=== PATIENT | female | born 1945 | race Hispanic/Latino ===

== ENCOUNTER 2017-07-01 12:08 | Outpatient (CLI) | payer MEDICARE ==
--- NOTE | 2017-07-01 14:20 | Mammography Report ---
BONE DEXA:07/01/17 12:08:00 CLINICAL: Postmenopausal. COMPARISON: 06/26/16 and 04/29/14 TECHNIQUE: Two site bone DEXA performed on an Hologic scanner. FINDINGS: The average BMD of the lumbar spine L1-L4 is 0.973g/cm squared with a T-score of -0.7 and a Z-score of +1.5. This compares to 0.985g/cm squared on the last exam and represents a -1.1% change from the previous study and a -0.7% change from baseline. The average BMD of the left hip is 0.856g/cm squared with a T-score of -0.7 and a Z-score of +0.9. This compares to 0.933g/cm squared on the last exam and represents a -8.3% change from the previous study and a -4.9% change from baseline. IMPRESSION: 1. WHO classification: Normal with average fracture risk based on spine measurements. A slight decline in spine BMD compared to the previous exams. 2. WHO classification: Osteopenia with increased fracture risk based on left hip measurements. Moderate decline in left hip BMD compared to the previous exams. RECOMMENDATION: Clinical correlation and routine screening. DEFINITIONS: BMD = Bone Mineral Density T-score = BMD related to mean peak bone mass of young adult (mean expressed in Standard Deviation) Z-score = Age matched BMD expressed in SD World Health Organization (WHO) Diagnostic Criteria Normal T-score > -1 SD Osteopenia T-score between -1 and -2.4 SD Osteoporosis T-score -2.5 SD or below NOTE: BMD is not the only risk factor for fracture; also consider factors such as the patient's age, risk of falling, previous osteoporotic fracture, family history of osteoporotic fractures, current smoker, and low body weight. Z-scores are not calculated if >80 years of age.
--- NOTE | 2017-07-01 16:36 | Mammography Report ---
BILATERAL DIGITAL SCREENING MAMMOGRAM with CAD: 07/01/17 12:08:00 CLINICAL: Routine screening. COMPARISON:06/26/16 FINDINGS: The breasts are almost entirely fatty. No mass, architectural distortion or suspicious calcifications. IMPRESSION: No mammographic evidence of malignancy. BI-RADS CATEGORY: 1 - - Negative RECOMMENDATION: Routine mammographic screening in one year. COMMENT: Patient follow-up letters are generated by our [employer] application.
== END 2017-07-01 12:09 | disposition home or self-care (01) ==
LOC: SPVWC 12:08
PROVIDERS: ATTEND Family Medicine
DX: Z12.31 Encounter for screening mammogram for malignant neoplasm of breast (principal); M85.88 Other specified disorders of bone density and structure, other site; Z78.0 Asymptomatic menopausal state
CPT/HCPCS: 77080; G0202; 77067

== ENCOUNTER 2019-07-17 09:59 | Outpatient (CLI) | payer MEDICARE ==
--- NOTE | 2019-07-20 13:53 | Mammography Report ---
DIGITAL SCREENING MAMMOGRAM WITH CAD, 07/17/2019 INDICATION: Routine screening mammography. TECHNIQUE: Digital bilateral 2D mammography was obtained in the craniocaudal and mediolateral obliq ue projections. This examination was interpreted with the benefit of Computer-Aided Detection analysi s. COMPARISON: 07/07/2018 FINDINGS: Breast Density: The breasts are almost entirely fatty. There is no evidence of dominant mass, suspicious calcifications or architectural distortion in eithe r breast. IMPRESSION: No mammographic evidence of malignancy. Follow up recommendation: Routine yearly BI-RADS Category 1: Negative. A "normal" or negative report should not discourage follow up or biopsy of a clinically significant f inding. A written summary of these findings will be mailed to the patient. The patient will be entered into a mammography reporting system which will generate a reminder letter for the patient's next appointmen t at the appropriate interval. The [employer] recommends yearly mammograms starting at age 40 and continuing as l lynda as a woman is in good health. Breast MRI is recommended for women with an approximate 20-25% or greater lifetime risk of breast cancer, including women with a strong family history of breast or ova jacquelyn cancer or who have been treated for Hodgkin's disease. Signer Name: Ramin Moseley MD Signed: 07/20/2019 1:48 PM Workstation Name: [id number]
== END 2019-07-17 10:00 | disposition home or self-care (01) ==
LOC: SPVWC 09:59
PROVIDERS: ATTEND Internal Medicine
DX: Z12.31 Encounter for screening mammogram for malignant neoplasm of breast (principal)
CPT/HCPCS: 77067

== ENCOUNTER 2020-07-18 13:14 | Outpatient (CLI) | payer MEDICARE ==
--- NOTE | 2020-07-18 18:18 | Mammography Report ---
DIGITAL SCREENING MAMMOGRAM WITH CAD, 07/18/2020 CLINICAL INFORMATION / INDICATION: Routine screening mammography. TECHNIQUE: Digital bilateral 2D mammography was obtained in the craniocaudal and mediolateral obliqu e projections. This examination was interpreted with the benefit of Computer-Aided Detection analysis . COMPARISON: 07/07/2018, 07/17/2019 FINDINGS: Breast Density: There are scattered areas of fibroglandular density. No dominant mass, suspicious calcifications, or architectural distortion in either breast. No interval change. IMPRESSION: No mammographic evidence of malignancy. Follow up recommendation: Routine yearly BI-RADS Category 1: Negative. A "normal" or negative report should not discourage follow up or biopsy of a clinically significant f inding. A written summary of these findings will be mailed to the patient. The patient will be entered into a mammography reporting system which will generate a reminder letter for the patient's next appointmen t at the appropriate interval. The [employer] recommends yearly mammograms starting at age 40 and continuing as l lynda as a woman is in good health. Breast MRI is recommended for women with an approximate 20-25% or greater lifetime risk of breast cancer, including women with a strong family history of breast or ova jacquelyn cancer or who have been treated for Hodgkin's disease. Signer Name: Daniela Hung MD Signed: 07/18/2020 6:14 PM Workstation Name: [id number]
== END 2020-07-18 13:15 | disposition home or self-care (01) ==
LOC: SPVWC 13:14
PROVIDERS: ATTEND Internal Medicine
DX: Z12.31 Encounter for screening mammogram for malignant neoplasm of breast (principal)
CPT/HCPCS: 77067

== ENCOUNTER 2021-07-19 09:34 | Outpatient (CLI) | payer MEDICARE ==
--- NOTE | 2021-07-19 10:51 | Mammography Report ---
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 75 years Female COMPARISON: DEXA scan from 07/01/2017 LUMBAR SPINE, L1-L4: - Bone mineral density (BMD) = 0.956 g/cm2. - T-score = -0.8 - Z-score = 1.6 Change (%) since most recent prior (if available): 1.8% decrease LEFT HIP, NECK : - Bone mineral density (BMD) = 0.587 g/cm2. - T-score = -2.4 - Z-score = -0.2 Change (%) since most recent prior (if available): 17.1% decrease IMPRESSION: 1. WHO Classification: Osteopenia. Fracture Risk: Increased. Note: 10-Year Fracture Risk (FRAX) not reported. This DEXA unit lacks FRAX functionality. BMD Reporting Guidelines (ISCD, 2015) BMD Reporting in Postmenopausal Women and in Men Age 50 and Older - T-scores are preferred. - The WHO densitometric classification is applicable. BMD Reporting in Females Prior to Menopause and in Males Younger Than Age 50 - Z-scores, not T-scores, are preferred. This is particularly important in children. - A Z-score of -2.0 or lower is defined as below the expected range for age, and a Z-score above -2.0 is within the expected range for age. - Osteoporosis cannot be diagnosed in men under age 50 on the basis of BMD alone. - The WHO diagnostic criteria may be applied to women in the menopausal transition. http://www.iscd.org/official-positions/4701-pfsn-yuzlgxwz-positions-adult/ Signer Name: Anselmo Baker MD Signed: 07/19/2021 10:45 AM Workstation Name: [id number]
== END 2021-07-19 09:35 | disposition home or self-care (01) ==
LOC: SPVWC 09:34
PROVIDERS: ATTEND Internal Medicine
DX: Z12.31 Encounter for screening mammogram for malignant neoplasm of breast (principal); M81.0 Age-related osteoporosis without current pathological fracture; M85.88 Other specified disorders of bone density and structure, other site
CPT/HCPCS: 77067; 77080